=== PATIENT | female | born 1975 | race Caucasian/White ===

== ENCOUNTER 2021-08-09 20:18 | Inpatient (IN) | payer OTHER ==
[~2021-08-09] VITALS: Ht 167.6 cm; Wt 68.0 kg
[~2021-08-09 20:18] MED LIST: AUGMENTIN TAB875 MG PO; BUPRENORPHINE-1 EACH SL; HYDROXYZINE PAM25 MG PO; IBU600 MG PO; LIDOCAINE 5% TOP; MIRTAZAPINE15 MG PO; NAPROSYN500 MG PO; NEURONTIN 400400 MG PO; POLYETHYLENE GL17 GM PO; TYLENOL 325MG325 MG PO; VANCOMYCIN750 MG/151 IV; VITAMIN D350 MC3 PO
[2021-08-09 20:53] LABS: RED BLOOD COUNT 3.87 M/UL (4.00-5.10); WHITE BLOOD COUNT 4.4 K/UL (4.5-11.0)
[2021-08-09 21:00] LABS: BUN/CREATININE RATIO 21 (0-10)
[2021-08-10] MEDS ORDERED: LIPITOR TAB 1010 MG PO (11:02)
[2021-08-10] MEDS ORDERED: TYLENOL325 MG PO (11:03)
[2021-08-10] MEDS ORDERED: LISINOPRIL10 MG PO (11:03)
[2021-08-10] MEDS ORDERED: FUROSEMIDE20 MG PO (11:05)
[2021-08-11 02:28] LABS: CANDIDA ALBICANS Not Detected (Negative); CANDIDA KRUSEI Not Detected (Negative); CANDIDA TROPICALIS Not Detected (Negative); ESCHERICHIA COLI Not Detected (Negative); HAEMOPHILUS INFLUENZAE Not Detected (Negative); KLEBSIELLA OXYTOCA Not Detected (Negative); KLEBSIELLA PNEUMONIAE Not Detected (Negative); KPC-CARBAPENEM-RESISTANCE GENE Not Detected (Negative); PROTEUS Not Detected (Negative); PSEUDOMONAS AERUGINOSA Not Detected (Negative); SERRATIA MARCESANS Not Detected (Negative); STAPHYLOCOCCUS AUREUS Not Detected (Negative); STREP AGALACTIAE (GROUP B) Not Detected (Negative); STREP PYOGENES (GROUP A) Not Detected (Negative); STREPTOCOCCUS Not Detected (Negative); vanA/B (VANCOMYCIN RESIST GENE Not Detected (Negative)
[2021-08-11 05:11] LABS: STAPHYLOCOCCUS DETECTED (Negative)
[2021-08-11 06:43] LABS: HEMOGLOBIN 10.8 gm/dl (12.3-15.3); RED BLOOD COUNT 3.76 M/UL (4.00-5.10); WHITE BLOOD COUNT 3.8 K/UL (4.5-11.0)
[2021-08-11 07:17] LABS: BUN/CREATININE RATIO 21 (0-10)
[2021-08-12 05:04] LABS: HEMOGLOBIN 10.9 gm/dl (12.3-15.3); RED BLOOD COUNT 3.85 M/UL (4.00-5.10); WHITE BLOOD COUNT 4.1 K/UL (4.5-11.0)
[2021-08-12 06:01] LABS: BUN/CREATININE RATIO 16 (0-10)
[2021-08-12] MEDS ORDERED: VANCO (09:57)
[2021-08-12] MEDS ORDERED: ROCEPHIN (09:57)
[2021-08-13 06:22] LABS: HEMOGLOBIN 10.7 gm/dl (12.3-15.3); RED BLOOD COUNT 3.8 M/UL (4.00-5.10)
[2021-08-13 06:45] LABS: BUN/CREATININE RATIO 25 (0-10)
== END 2021-08-13 16:59 | disposition short-term general hospital (02) | DRG 289 ==
LOC: ER1 20:18 → MED SURG 4 08-10 04:47 → CDU 08-10 04:47 → MED SURG 4 08-10 06:45
PROVIDERS: Internal Medicine; Physician Assistant Medical; ADMIT Internal Medicine
DX: I33.0 Acute and subacute infective endocarditis (principal); F11.20 Opioid dependence, uncomplicated; Z20.822 Contact with and (suspected) exposure to COVID-19; G89.29 Other chronic pain; B95.62 Methicillin resistant Staphylococcus aureus infection as the cause of diseases classified elsewhere; M54.9 Dorsalgia, unspecified; F19.10 Other psychoactive substance abuse, uncomplicated; Z88.8 Allergy status to other drugs, medicaments and biological substances; Z91.14 Patient's other noncompliance with medication regimen; Z88.5 Allergy status to narcotic agent; Z90.49 Acquired absence of other specified parts of digestive tract; Z90.710 Acquired absence of both cervix and uterus; Z82.49 Family history of ischemic heart disease and other diseases of the circulatory system
CPT/HCPCS: 36415; 71045; 80048; 80053; 80202; 81001; 82550; 82553; 83605; 83735; 83880; 84100; 84484; 85025; 85027; 85652; 86140; 87040; 87077; 87086; 87150; 87186; 93005; 96374; 96375; 99285; J0696; J1650; J3370; J7070; Q0177; U0002

== ENCOUNTER → 2021-10-19 | Outpatient (CLI) | payer OTHER ==
[~2021-10-19] MED LIST changes: +FUROSEMIDE20 MG PO; +LIPITOR TAB 1010 MG PO; +LISINOPRIL10 MG PO; +PROAIR HFA8.5 GM INH; +ROCEPHIN; +TYLENOL325 MG PO; +VANCO
[2021-10-19 13:26] LABS: HEMOGLOBIN 13.8 gm/dl (12.3-15.3); RED BLOOD COUNT 4.88 M/UL (4.00-5.10)
[2021-10-19 13:57] LABS: BUN/CREATININE RATIO 18 (0-10)
[2021-10-21 00:47] LABS: KPC-CARBAPENEM-RESISTANCE GENE Not Detected (Negative); vanA/B (VANCOMYCIN RESIST GENE Not Detected (Negative)
[2021-10-21 00:48] LABS: CANDIDA ALBICANS Not Detected (Negative); CANDIDA KRUSEI Not Detected (Negative); CANDIDA TROPICALIS Not Detected (Negative); ESCHERICHIA COLI Not Detected (Negative); HAEMOPHILUS INFLUENZAE Not Detected (Negative); KLEBSIELLA OXYTOCA Not Detected (Negative); KLEBSIELLA PNEUMONIAE Not Detected (Negative); PROTEUS Not Detected (Negative); PSEUDOMONAS AERUGINOSA Not Detected (Negative); SERRATIA MARCESANS Not Detected (Negative); STAPHYLOCOCCUS Not Detected (Negative); STAPHYLOCOCCUS AUREUS Not Detected (Negative); STREP AGALACTIAE (GROUP B) Not Detected (Negative); STREP PYOGENES (GROUP A) Not Detected (Negative)
[2021-10-21 12:31] LABS: STREPTOCOCCUS DETECTED (Negative)
== END ==
LOC: OPSV 11:14
PROVIDERS: Internal Medicine Infectious Disease
DX: I33.0 Acute and subacute infective endocarditis (principal)
CPT/HCPCS: 36415; 80053; 85025; 86140; 87040; 87150

== ENCOUNTER 2021-10-21 19:39 | Inpatient (IN) | payer OTHER ==
[~2021-10-21] VITALS: Ht 167.6 cm; Wt 70.3 kg
[~2021-10-21 19:39] MED LIST changes: -BUPRENORPHINE-1 EACH SL; -LIPITOR TAB 1010 MG PO; -PROAIR HFA8.5 GM INH; -TYLENOL325 MG PO
[2021-10-21 23:09] LABS: RED BLOOD COUNT 4.28 M/UL (4.00-5.10)
[2021-10-21 23:24] LABS: BUN/CREATININE RATIO 19 (0-10)
[2021-10-22] MEDS ORDERED: PROAIR HFA8.5 GM INH (09:09)
[2021-10-22] MEDS ORDERED: LIPITOR TAB 1010 MG PO (11:02)
[2021-10-22] MEDS ORDERED: TYLENOL325 MG PO (11:03)
[2021-10-22] MEDS ORDERED: BUPRENORPHINE-1 EACH SL (11:27)
[2021-10-23 05:48] LABS: HEMOGLOBIN 11.7 gm/dl (12.3-15.3); RED BLOOD COUNT 4.18 M/UL (4.00-5.10); WHITE BLOOD COUNT 3.4 K/UL (4.5-11.0)
[2021-10-23 06:12] LABS: BUN/CREATININE RATIO 18 (0-10)
[2021-10-24 04:54] LABS: BUN/CREATININE RATIO 17 (0-10)
[2021-10-25 06:57] LABS: HEMOGLOBIN 10.6 gm/dl (12.3-15.3); WHITE BLOOD COUNT 4.2 K/UL (4.5-11.0)
[2021-10-25 06:59] LABS: RED BLOOD COUNT 3.76 M/UL (4.00-5.10)
[2021-10-25 09:06] LABS: BUN/CREATININE RATIO 17 (0-10)
--- NOTE | 2021-10-25 13:55 | NUR ---
PATIENT UPSET WITH LABOURERS, HER IV INFILTRATED LAST NIGHT, RN TRIED TO START A NEW IV IN HER FOREARM. PATIENT STATED THAT THE IV HURTS AND NOT IN THE RIGHT PLACE. SHE REFUSED NIGHT TIME VANCO. SHE WANTED TO WAIT FOR DAY SHIFT TO GET HERE SO THAT THE ULTRASOUND NURSE COULD GET AN IV ON HER. PATIENT PLEASANT THIS MORNING, RY CAME AND STARTED A 20 IN HER RIGHT FOREARM, GOOD BLOOD RETURN AND FLUSHED WELL. I WENT IN TO START 1400 VANCO AND PATIENT STATED "I FEEL WORSE THEN WHEN I CAME IN HERE, I AM ABOUT READY TO LEAVE. I HAVENT SEEN A DOCTOR YET" ATTEMPTED TO FLUSH PATIENTS IV WHICH FLUSHED WELL. PATIENT STARTED HOLLERING THAT THAT DOES NOT FEEL RIGHT, IT TRINIDAD. NOW STOP. THE IV NURSE STATED SHE MAY NOT HAVE GOT THE IV AND IT FEELS LIKE SHE DID NOT GET IT" RY NOTIFIED, WILL COME START A NEW IV. DR CLIFFORD NOTIFIED, WILL COME SEE THE PATIENT.
[2021-10-26 07:25] LABS: HEMOGLOBIN 10.7 gm/dl (12.3-15.3); RED BLOOD COUNT 3.78 M/UL (4.00-5.10); WHITE BLOOD COUNT 3.2 K/UL (4.5-11.0)
[2021-10-26 09:33] LABS: BUN/CREATININE RATIO 18 (0-10)
--- NOTE | 2021-10-26 09:39 | NUR ---
SPOKE WITH MELISSA IN PHARMACY ABOUT PATIENTS VANCO TROUGH. PAYROLL DIRECTOR NURSE DID NOT ADMINISTER 0600 DOSE DUE TO MEDITECH BEING DOWN. I DID NOT SEE WHERE A VANCO TROUGH HAD BEEN ORDERED. MELISSA STATED TO GO AHEAD AND HANG VANCO, IT WILL JUST BE 3 HOURS LATE.
[2021-10-27 08:15] LABS: HEMOGLOBIN 10.4 gm/dl (12.3-15.3); RED BLOOD COUNT 3.67 M/UL (4.00-5.10); WHITE BLOOD COUNT 2.4 K/UL (4.5-11.0)
[2021-10-27 08:50] LABS: BUN/CREATININE RATIO 20 (0-10)
[2021-10-27] MEDS ORDERED: AMOX TR-K CLV1 EAC4 PO (10:45)
== END 2021-10-27 10:54 | disposition home or self-care (01) | DRG 289 ==
LOC: ER1 19:39 → MED SURG 4 10-22 00:28 → M/S 10-22 00:28 → CDU 10-22 00:28 → M/S 10-22 03:20 → MED SURG 4 10-22 18:39
PROVIDERS: Internal Medicine; Internal Medicine Infectious Disease; Physician Assistant Medical; ADMIT Family Medicine
PROC: B24BZZZ Ultrasonography of Heart with Aorta (ICD-10-PCS; principal; 2021-10-23)
DX: I33.0 Acute and subacute infective endocarditis (principal); D61.818 Other pancytopenia; F11.20 Opioid dependence, uncomplicated; R78.81 Bacteremia; F15.10 Other stimulant abuse, uncomplicated; M54.9 Dorsalgia, unspecified; B18.2 Chronic viral hepatitis C; G89.29 Other chronic pain; E16.2 Hypoglycemia, unspecified; B95.5 Unspecified streptococcus as the cause of diseases classified elsewhere; Z98.890 Other specified postprocedural states; Z88.8 Allergy status to other drugs, medicaments and biological substances; Z79.899 Other long term (current) drug therapy; Z88.5 Allergy status to narcotic agent; Z83.3 Family history of diabetes mellitus; Z82.49 Family history of ischemic heart disease and other diseases of the circulatory system; Z91.14 Patient's other noncompliance with medication regimen; Z90.710 Acquired absence of both cervix and uterus; Z90.49 Acquired absence of other specified parts of digestive tract
CPT/HCPCS: ECHO; 36415; 71045; 72132; 80048; 80053; 80202; 82550; 82553; 82962; 83605; 83735; 84484; 85025; 85027; 86140; 87040; 93005; 93306; 94760; 96374; 96375; 99285; J0692; J0696; J1650; J3370; J7030; J7050; J7070; Q0177; Q9967